=== PATIENT | female | born 1995 | race Caucasian/White ===

== ENCOUNTER 2018-11-28 19:45 | Emergency (ER) | payer BC, MEDICAID ==
[2018-11-28] MEDS ORDERED: PENICILLIN VK 250 MG TABLET PO STA (21:23)
[2018-11-28] MEDS ORDERED: DEXAMETHASONE 10 MG/ML VIAL PO STA (21:23)
[2018-11-28] MEDS ORDERED: CHERRY SYRUP 10 ML UDC PO ONE (21:23)
--- NOTE | 2018-11-28 21:25 | ED Physician Documentation ---
History of Present Illness - Stated complaint Stated Complaint: SORE THROAT - Chief complaint Chief Complaint: Heent - History obtained from History obtained from: Patient - History of Present Illness Timing: How many days ago (2) Pain level max: 5 Pain level now: 5 - Additonal information Additional information: 23-year-old female presents to the emergency department for sore throat for the past 2 to 3 days. Subjective fevers. No vomiting. No cough. Mild rhinorrhea. No congestion. Bilateral ear pain as well. Worse with swallowing. Nothing makes it better. Denies any possibility of . She is not breast- feeding. Review of Systems Throat: reports: Sore throat GI: denies: Vomiting, Diarrhea Skin: denies: Rash Musculoskeletal: denies: Neck pain, Back pain Neurologic: denies: Headache PD PAST MEDICAL HISTORY - Past Medical History Past Medical History: Yes HEENT: Other - Past Surgical History Past Surgical History: Yes HEENT: Myringotomy (tubes) - Present Medications Home Medications: Ambulatory Orders Medication Instructions Recorded Confirmed Penicillin V Potassium 500 mg PO Q6HR #40 tablet 11/28/18 - Allergies Allergies/Adverse Reactions: Allergies Allergy/AdvReac Type Severity Reaction Status Date / Time No Known Drug Allergies Allergy Verified 11/28/18 20:16 - Social History Does the pt smoke?: No Smoking Status: Never smoker Does the pt drink ETOH?: No Does the pt have substance abuse?: No - Immunizations Immunizations are current?: Yes - POLST Patient has POLST: No PD ED PE NORMAL - Vitals Vital signs reviewed: Yes - General General: Alert and oriented X 3, No acute distress, Well developed/nourished - HEENT HEENT: PERRL, Ears normal, Moist mucous membranes, Other (Posterior oropharyngeal erythema with tonsillar exudates. Uvula midline.) - Neck Neck: Supple, no meningeal sign, Other (Shotty anterior lymphadenopathy) - Cardiac Cardiac: RRR, Strong equal pulses - Respiratory Respiratory: No respiratory distress, Clear bilaterally - Abdomen Abdomen: Soft, Non tender, Non distended - Derm Derm: Warm and dry, No rash - Neuro Neuro: Alert and oriented X 3 - Psych Psych: Normal mood, Normal affect Results - Vitals Vitals: Oxygen O2 Source Room air - Labs Labs: Laboratory Tests 11/28/18 20:15 Group A Strep Rapid POSITIVE H PD MEDICAL DECISION MAKING - ED course Complexity details: reviewed results, considered differential, d/w patient ED course: Patient with strep pharyngitis. Will place on antibiotics. Normal phonation. No trismus. Patient counseled regarding signs and symptoms for which I believe and urgent re-evaluation would be necessary. Patient with good understanding of and agreement to plan and is comfortable going home at this time This document was made in part using voice recognition software. While efforts are made to proofread this document, sound alike and grammatical errors may occur. Departure - Departure Disposition: 01 Home, Self Care Clinical Impression: Strep pharyngitis Condition: Good Instructions: ED Strep Pharyngitis Conf Follow-Up: your,doctor in 1 week if not better [Other] Prescriptions: Penicillin V Potassium 500 mg PO Q6HR #40 tablet Comments: Take all antibiotics until gone. Return if you worsen. You can use Motrin or Tylenol as needed for pain. Drink plenty of fluids. Forms: Activity restrictions Discharge Date/Time: 11/28/18 21:37
[2018-11-28 21:39] VITALS: BP 136/74
== END 2018-11-28 21:37 | disposition home or self-care (01) ==
LOC: ED 19:45
DX: J02.0 Streptococcal pharyngitis (principal)
CPT/HCPCS: 87430; 99283; 99284; A9270

== ENCOUNTER 2019-12-15 01:44 | Emergency (ER) | payer SELFPAY ==
[2019-12-15] MEDS ORDERED: BACITRACIN ZINC OINT 1 PACKET TOP STA (02:04)
[2019-12-15 02:48] LABS: BILIRUBIN,URINE NEGATIVE (NEGATIVE); GLUCOSE, URINE (UA) NEGATIVE (NEGATIVE); KETONES,URINE (UA) TRACE mg/dL (NEGATIVE); LEUKOCYTE ESTERASE, URINE NEGATIVE (NEGATIVE); NITRITE,URINE NEGATIVE (NEGATIVE); OCCULT BLOOD,URINE MODERATE (NEGATIVE); PH,URINE 5.5 PH (5.0-7.5); PROTEIN,URINE NEGATIVE (NEGATIVE); UROBILINOGEN,URINE 1 (NORMAL) E.U./dL (NORMAL)
[2019-12-15 02:51] LABS: CLARITY,URINE CLEAR (CLEAR)
[2019-12-15 02:58] LABS: BACTERIA,URINE Rare /HPF (None Seen); RBC,URINE 0-5 /HPF (0-5); SQUAMOUS EPITHELIAL CELL,UR MOD Squamous (<= Few)
--- NOTE | 2019-12-15 03:33 | ED Physician Documentation ---
PD HPI FEMALE - Stated complaint Stated Complaint: F /8 WK PREG - Chief complaint Chief Complaint: Abd Pain - History obtained from History obtained from: Patient - Additional information Additional information: Patient comes emergency department complaining of vaginal bleeding. She states she is somewhere around 8 weeks and that about 5 nights ago, her she and her significant other had sexual intercourse. She noticed after that that she had some light vaginal bleeding, but did not have any other problems and the bleeding resolved quickly on its own. She states she has seen her OB and has an ultrasound scheduled for the . She denies nausea and states she has not had any other problems until this evening when she got in the shower, she noticed some dark red blood running down her legs. Patient states this was about an hour ago. She feels as though the bleeding may have slowed down a little bit, but she is concerned that she has had bleeding twice in the last week. Patient states this is her first . Patient denies abdominal pain, dysuria, vaginal discharge, back pain, or fevers. No other complaints at this time. Review of Systems Ten Systems: 10 systems reviewed and negative Constitutional: reports: Reviewed and negative Eyes: reports: Reviewed and negative Ears: reports: Reviewed and negative Nose: reports: Reviewed and negative Throat: reports: Reviewed and negative Cardiac: reports: Reviewed and negative Respiratory: reports: Reviewed and negative GI: reports: Reviewed and negative. denies: Abdominal Pain, Nausea : reports: LMP (October 19, 2019), Vaginal bleeding, Now EGA. denies: Dysuria Skin: reports: Reviewed and negative Musculoskeletal: reports: Reviewed and negative Neurologic: reports: Reviewed and negative Psychiatric: reports: Reviewed and negative Endocrine: reports: Reviewed and negative Immunocompromised: reports: Reviewed and negative PD PAST MEDICAL HISTORY - Past Medical History Past Medical History: Yes HEENT: Other - Past Surgical History Past Surgical History: Yes HEENT: Myringotomy (tubes) - Present Medications Home Medications: Ambulatory Orders Medication Instructions Recorded Confirmed No Known Home Medications 12/15/19 12/15/19 - Allergies Allergies/Adverse Reactions: Allergies Allergy/AdvReac Type Severity Reaction Status Date / Time No Known Drug Allergies Allergy Verified 12/15/19 01:56 - Social History Does the pt smoke?: No Smoking Status: Never smoker Does the pt drink ETOH?: No Does the pt have substance abuse?: No - Immunizations Immunizations are current?: Yes - POLST Patient has POLST: No PD ED PE NORMAL - Vitals Vital signs reviewed: Yes - General General: Alert and oriented X 3, No acute distress, Well developed/nourished - HEENT HEENT: Atraumatic, PERRL, EOMI, Moist mucous membranes - Neck Neck: Supple, no meningeal sign - Cardiac Cardiac: RRR, No murmur - Respiratory Respiratory: No respiratory distress, Clear bilaterally - Abdomen Abdomen: Soft, Non tender, Non distended - Female Female : Other (Normal female genitalia. Mild amount of dark red bloody residue, No clots. Unable to digitally palpate cervical os.) - Derm Derm: Warm and dry - Extremities Extremities: No deformity - Neuro Neuro: Alert and oriented X 3 - Psych Psych: Normal mood, Normal affect Results - Vitals Vitals: Vital Signs - 24 hr 12/15/19 12/15/19 12/15/19 01:45 02:07 03:41 Temperature 36.7 C 36.7 C 36.5 C Heart Rate 81 81 90 Respiratory 18 18 18 Rate Blood Pressure 135/82 H 135/82 H 126/65 O2 Saturation 100 100 100 Oxygen O2 Source Room air - Labs Labs: Laboratory Tests 12/15/19 12/15/19 02:38 02:40 HCG, Quant 66510.00 Urine Color YELLOW Urine Clarity CLEAR Urine pH 5.5 Ur Specific [place] >=1.030 H Urine Protein NEGATIVE Urine Glucose (UA) NEGATIVE Urine Ketones TRACE Urine Occult Blood MODERATE H Urine Nitrite NEGATIVE Urine Bilirubin NEGATIVE Urine Urobilinogen 1 (NORMAL) Ur Leukocyte Esterase NEGATIVE Urine RBC 0-5 Urine WBC 0-3 Ur Squamous Epith Cells MOD Squamous H Urine Bacteria Rare Ur Microscopic Review INDICATED Urine Culture Comments NOT INDICATED - Rads (name of study) ob US Radiology: Prelim report reviewed PD MEDICAL DECISION MAKING - ED course Complexity details: reviewed results, re-evaluated patient, considered differential, d/w patient ED course: I did order a serum quant and ultrasound, as I had been unable to palpate the cervical os, due to the high position of the cervix and the patient's nulliparous status. I was concerned because I also found a very small amount of what appeared to be tissue in the patient's vaginal canal. Ultrasound was done and showed a viable 7/2-week fetus with a normal heart rate. Possible small subchorionic hemorrhage per air quality technician. I discussed with the patient my findings on the vaginal exam, as well as the good appearance of the ultrasound. I discussed with her that I am not sure what the tissue like material was in her vaginal canal and that the patient may still be at risk for miscarriage. However, at this time, she should plan to keep her ultrasound appointment and try to follow-up with her OB next week for reevaluation because it is currently Wednesday morning. We have discussed the usual indications for return. Departure - Departure Disposition: Home, Self Care Clinical Impression: Threatened affecting intrauterine Condition: Stable Instructions: ED Miscarriage Poss Comments: At this point in time, despite the material that was found in your vaginal canal, the fetus actually looks quite good. It is measuring just over 7 weeks and has a normal heartbeat and is in the uterus. At this point in time, given that you are and bleeding, you are still considered at risk for miscarriage because of the bleeding. However, it may boot turner that this bleeding is benign and resolves on its own with a successful . Only time will tell. It is very important that you follow-up this next week with your [facility]. You should still plan to have your ultrasound the if no further complications arise in the meantime. Discharge Date/Time: 12/15/19 03:40
[2019-12-15 03:41] VITALS: BP 126/65
--- NOTE | 2019-12-15 09:41 | Ultrasound Report ---
PROCEDURE: OB Transvaginal INDICATIONS: vaginal bleeding, 8 weeks TECHNIQUE: Real-time grayscale scanning was performed with image documentation COMPARISON: None. FINDINGS: LMP 10/19/2019 JOSUE by LMP 07/25/2020 Exam date 12/15/2019 JOSUE 07/30/2020 Single living intrauterine fetus is present. [place]-rump length measuring 1.2 cm, 7 weeks 3 days. Feta l heart rate measures 152 bpm. Yolk sac is visualized. Questionable Perigestational hemorrhage measuring 2 x 2 by 3 mm. There is a presumed right corpus luteum measuring 1.3 x 1.2 x 1.0 cm, technically nonspecific. Small paraovarian cyst measuring 6 x 4 x 7 mm. IMPRESSION: Single living intrauterine fetus with a gestational age measuring 7 weeks and 3 days (JOSUE of 07/30/2020 , which is concordant with LMP) by today's ultrasound measurements Small perigestational hemorrhage. Findings are concordant with the preliminary study interpretation p rovided at the time of the study. Reviewed by: Chase Anderson MD on 12/15/2019 9:40 AM PDT Approved by: Chase Anderson MD on 12/15/2019 9:40 AM PDT Station ID: [id number]
== END 2019-12-15 03:40 | disposition home or self-care (01) ==
LOC: ED 01:44
DX: O20.0 Threatened abortion (principal); Z3A.01 Less than 8 weeks gestation of pregnancy
CPT/HCPCS: 36415; 76817; 81001; 81003; 84702; 87086; 99284

== ENCOUNTER 2020-01-08 14:53 | Outpatient (CLI) | payer OTHER | END 2020-01-08 14:54 | disposition home or self-care (01) | LOC: COV 14:53 | PROVIDERS: ATTEND Family Medicine | DX: U07.1 COVID-19 (principal) ==

== ENCOUNTER 2020-02-14 12:35 | Outpatient (CLI) | payer MEDICAID ==
[2020-02-14 13:13] LABS: BASOPHILS % (AUTO) 0.2 %; EOSINOPHILS % (AUTO) 0.2 %; HGB - HEMOGLOBIN 12.5 g/dL (12.0-16.0); LYMPHOCYTES # (AUTO) 2.1 10^3/uL (1.5-3.5); LYMPHOCYTES % (AUTO) 19.5 %; MEAN CORPUSCULAR HEMOGLOBIN 30.4 pg (27.0-31.0); MEAN CORPUSCULAR HGB CONC 33.4 g/dL (32.0-36.0); MEAN PLATELET VOLUME 10.7 fL (7.9-10.8); MONOCYTES # (AUTO) 0.5 10^3/uL (0.0-1.0); MONOCYTES % (AUTO) 5.1 %; MUDS CUTOFF CONCENTRATIONS CUTOFF CONC BELOW:; NEUTROPHILS # (AUTO) 7.9 10^3/uL (1.5-6.6); NEUTROPHILS % (AUTO) 74.5 %; PLT - PLATELET COUNT 268 10^3/uL (130-450); RED BLOOD COUNT 4.11 10^6/uL (4.20-5.40); RED CELL DISTRIBUTION WIDTH 13.3 % (12.0-15.0); WHITE BLOOD COUNT 10.6 x10^3/uL (4.8-10.8)
[2020-02-14 13:15] LABS: BILIRUBIN,URINE NEGATIVE (NEGATIVE); GLUCOSE, URINE (UA) NEGATIVE (NEGATIVE); KETONES,URINE (UA) NEGATIVE (NEGATIVE); LEUKOCYTE ESTERASE, URINE TRACE (NEGATIVE); NITRITE,URINE NEGATIVE (NEGATIVE); OCCULT BLOOD,URINE NEGATIVE (NEGATIVE); PH,URINE 6.5 PH (5.0-7.5); PROTEIN,URINE NEGATIVE (NEGATIVE); UROBILINOGEN,URINE 0.2 (NORMAL) E.U./dL (NORMAL)
[2020-02-14 13:25] LABS: CLARITY,URINE CLEAR (CLEAR)
[2020-02-14 13:26] LABS: AMPHETAMINE SCREEN,URINE NEGATIVE (NEGATIVE); BACTERIA,URINE Rare /HPF (None Seen); BENZODIAZEPINES SCREEN, URINE NEGATIVE (NEGATIVE); COCAINE SCREEN URINE NEGATIVE (NEGATIVE); METHADONE SCREEN, URINE NEGATIVE (NEGATIVE); METHAMPHETAMINES SCREEN, URINE NEGATIVE (NEGATIVE); OPIATE SCREEN, URINE NEGATIVE (NEGATIVE); OXYCODONE SCREEN, URINE NEGATIVE (NEGATIVE); PROPOXYPHENE SCREEN, URINE NEGATIVE (NEGATIVE); RBC,URINE None Seen /HPF (0-5); SQUAMOUS EPITHELIAL CELL,UR MANY Squamous (<= Few); TRICYCLIC ANTIDEPRESSANT,URINE NEGATIVE (NEGATIVE)
[2020-02-15 12:58] LABS: HEPATITIS C ANTIBODY NON-REACTIVE (NON-REACTIVE)
[2020-02-15 12:59] LABS: HEPATITIS B SURFACE ANTIGEN NON-REACTIVE (NON-REACTIVE)
[2020-02-15 13:57] LABS: HIV AG/AB 4TH GEN NON-REACTIVE (NON-REACTIVE)
== END 2020-02-14 12:36 | disposition home or self-care (01) ==
LOC: LAB 12:35
PROVIDERS: ATTEND Nurse Practitioner Obstetrics & Gynecology
DX: Z34.90 Encounter for supervision of normal pregnancy, unspecified, unspecified trimester (principal)
CPT/HCPCS: 36415; 80306; 81001; 81599; 85025; 86592; 86762; 86787; 86803; 86850; 86900; 86901; 87086; 87340; 87389

== ENCOUNTER 2020-03-11 11:41 | Outpatient (CLI) | payer MEDICAID ==
--- NOTE | 2020-03-11 16:02 | Ultrasound Report ---
PROCEDURE: OB Detailed Eval INDICATIONS: SUPERVISION OF NORMAL OUTSIDE/PRIOR DATING DATA: Last menstrual period (LMP): 10/19/2019. LMP-based estimated date of delivery (JOSUE): 07/25/2020. First dating scan (date and location): 12/15/2019. Estimated date of delivery (JOSUE) from first dating scan: 07/30/2020, +/- 5 days based on first OB ultra sound. TECHNIQUE: Real-time scanning was performed of the fetus, with image documentation and biometric measurements. Endovaginal scanning: Performed for accurate assessment of the cervical length. COMPARISON: 12/15/2019 OB ultrasound. FINDINGS: General: A single living intrauterine gestation is present. Presentation: Vertex Placenta: Placental position is posterior, without previa. Amniotic fluid index: 11.1 cm, normal for gestational age. heart rate: 157 beats per minute. Maternal cervical canal: Abnormally shortened at 1.3 cm long with relative funneling through the upp er half of the cervix; normal length is 2.5 cm or more. biometrics: Biparietal diameter: 4.9 cm, 20 weeks 5 days Head circumference: 17.8 cm, 20 weeks 2 days Abdominal circumference: 15.3 cm, 20 weeks 3 days Femur length: 3.3 cm, 20 weeks 1 day Estimated gestational age from initial scan: 20 weeks 4 days. Composite gestational age from present scan: 20 weeks 3 days Estimated weight and percentile: 347 g, 32nd percentile Measurement variability in biometric dating: +/- 10 days from 12-20 weeks gestation, +/- 2 weeks from 20-30 weeks gestation, +/- 3 weeks at 30 weeks gestation or later. Anatomic survey: Neuro: Ventricles are normal at less than 10 mm. Cisterna magna is normal at 3-11 mm. Cerebellum i s normal in size and morphology. Nuchal skin fold: Normal at less than 6 mm between 14 and 20 weeks gestational age. Face: Nose and lips, facial profile are normal. Spine: No evidence for spina bifida. Heart: 4-chambered heart is present, with normal ventricular outflow tracts. Diaphragm: Diaphragm is intact. Stomach: Left-sided stomach is present. Kidneys: No hydronephrosis. Normal is less than 5 mm in 2nd trimester, less than 7 mm in 3rd trimester. Cord: 3 vessel cord has orthotopic insertion. Bladder: Normal in size. Extremities: All 4 extremities are visualized. IMPRESSION: Appropriate interval growth, the delivery date is projected to be centered on 07/25/2020, +/- 5 days b ased on the first OB ultrasound. Note is made of foreshortening of the cervix measuring 1.3 cm closed length, and the upper half of the cervix appears funneled. Over a craniocaudad length of 2.2 cm. Thi s information was immediately called to the physician's nurse Phuong, to convey the information person ally to Dr. Jovel. Reviewed by: Wayne Silverio MD on 03/11/2020 4:01 PM PST Approved by: Wayne Silverio MD on 03/11/2020 4:01 PM PST Station ID: [id number]
== END 2020-03-11 11:42 | disposition home or self-care (01) ==
LOC: DI 11:41
PROVIDERS: ATTEND Obstetrics & Gynecology
DX: Z34.92 Encounter for supervision of normal pregnancy, unspecified, second trimester (principal)

== ENCOUNTER 2020-04-25 07:00 | Outpatient (CLI) | payer MEDICAID | END 2020-04-25 23:59 | disposition home or self-care (01) | LOC: LAB.R 07:00 | PROVIDERS: ATTEND Obstetrics & Gynecology | DX: O09.90 Supervision of high risk pregnancy, unspecified, unspecified trimester (principal) | CPT/HCPCS: 82731 ==

== ENCOUNTER 2020-05-04 16:23 | Outpatient (CLI) | payer MEDICAID ==
[2020-05-04 16:45] VITALS: BP 131/68
--- NOTE | 2020-05-04 17:46 | PROVIDER PROGRESS NOTE ---
- HPI Current : Current [facility] [place] 07/25/20 Gestation 28 Weeks and 2 Days 1 Para 0 Vital Signs Temperature 97.9 F 05/04/20 16:44 Heart Rate 98 05/04/20 16:44 Respiratory Rate 18 05/04/20 16:44 Blood Pressure 131/68 H 05/04/20 16:44 O2 Saturation 100 05/04/20 16:44 Temperature 97.9 F 05/04/20 16:55 Heart Rate 98 05/04/20 16:55 Respiratory Rate 18 05/04/20 16:55 Blood Pressure 131/68 H 05/04/20 16:55 O2 Saturation 100 05/04/20 16:55 - Procedures Procedure Details: S: here for vaginal bleeding. Had spotting this am, red, only seen when wiping. Then later on soaked the double-fabric crotch area of her underwear, wasn't wearing a pad, thinks it would have gone through to her underwear if she sat down. Since then no further bleeding. No LOF. No UC. Good FM. Feeling a change in vaginal odor. No itching. Had intercourse 2d ago. Has been working. O: AVSS Alert, resting comfortably, NAD Abd soft, nt/nd EFG normal Vagina without erythema or lesions. No blood in the vault. Fishy odor is present. Cervix appears closed, cerclage in place at 12:00. SVE closed and high NST--indication: vaginal bleeding in 3rd trimester Start time 16:44, stop time 17:26 Baseline: 150 BPM Variability: Moderate Accelerations: Present Decelerations: Absent Trends in FHR over time: no changes [place] contractions in 10 minutes: 0 Impression: reactive Category 1 NST A/P: 25yo g1 at 28w2d by LMP c/w 7w US with vaginal bleeding in 3rd TM of -- complicated by exam-indicated cerclage at 21w--following incidental finding of short cervix with funneling seen on routine anatomy scan. Has done well since that time. No previa on prior ultrasounds. No evidence of labor. No pain or changes in tracing to suggest abruption. On exam there is no active bleeding, source of bleeding could not be identified, and there was no blood in the vault. She does have odor c/w bacterial vaginosis and clue cells on wet mount. Will treat with po flagyl. d/w Setswana MFM who recommends no intercourse--discussed with Clotilde today. OK to work. MFM without further recommendations. 28min visit including consultation with MFM. Seen and examined by
[2020-05-04 22:16] LABS: CHLAMYDIA TRACHOMATIS DNA NEGATIVE (NEGATIVE); NEISSERIA GONORRHOEAE DNA NEGATIVE (NEGATIVE); TRICHOMONAS VAGINALIS DNA NEGATIVE (NEGATIVE)
== END 2020-05-04 18:15 | disposition home or self-care (01) ==
LOC: WFO 16:23 → FBP 16:30 → WFO 18:15
PROVIDERS: ATTEND Obstetrics & Gynecology
DX: O46.93 Antepartum hemorrhage, unspecified, third trimester (principal); Z3A.28 28 weeks gestation of pregnancy
CPT/HCPCS: 87210; 87491; 87591; 87661; 99213

== ENCOUNTER 2020-05-06 15:43 | Outpatient (CLI) | payer MEDICAID ==
[2020-05-06 17:14] LABS: HCT - HEMATOCRIT 34.7 % (37.0-47.0); HGB - HEMOGLOBIN 11.4 g/dL (12.0-16.0); MEAN CORPUSCULAR HEMOGLOBIN 30.8 pg (27.0-31.0); MEAN CORPUSCULAR HGB CONC 32.9 g/dL (32.0-36.0); MEAN CORPUSCULAR VOLUME 93.8 fL (81.0-99.0); MEAN PLATELET VOLUME 10.8 fL (7.9-10.8); RED BLOOD COUNT 3.7 10^6/uL (4.20-5.40); RED CELL DISTRIBUTION WIDTH 12.4 % (12.0-15.0)
== END 2020-05-06 15:44 | disposition home or self-care (01) ==
LOC: LAB 15:43
PROVIDERS: ATTEND Obstetrics & Gynecology
DX: O09.90 Supervision of high risk pregnancy, unspecified, unspecified trimester (principal)
CPT/HCPCS: 36415; 82950; 85027

== ENCOUNTER 2020-05-15 07:59 | Outpatient (CLI) | payer MEDICAID ==
[2020-05-15 08:28] LABS: GTT GLUCOSE,FASTING 94 mg/dL (70-100)
== END 2020-05-15 08:00 | disposition home or self-care (01) ==
LOC: LAB 07:59
PROVIDERS: ATTEND Obstetrics & Gynecology
DX: O99.810 Abnormal glucose complicating pregnancy (principal)
CPT/HCPCS: 36415; 82951; 82952

== ENCOUNTER 2020-05-30 09:06 | Outpatient (CLI) | payer MEDICAID ==
[2020-05-30 09:57] LABS: BILIRUBIN,URINE NEGATIVE (NEGATIVE); GLUCOSE, URINE (UA) NEGATIVE (NEGATIVE); KETONES,URINE (UA) NEGATIVE (NEGATIVE); LEUKOCYTE ESTERASE, URINE TRACE (NEGATIVE); NITRITE,URINE NEGATIVE (NEGATIVE); OCCULT BLOOD,URINE NEGATIVE (NEGATIVE); PH,URINE 5.5 PH (5.0-7.5); PROTEIN,URINE NEGATIVE (NEGATIVE); UROBILINOGEN,URINE 0.2 (NORMAL) E.U./dL (NORMAL)
[2020-05-30 10:00] LABS: CLARITY,URINE HAZY (CLEAR)
[2020-05-30 10:05] LABS: BACTERIA,URINE Rare /HPF (None Seen); MUCUS,URINE Moderate Strands; RBC,URINE 0-5 /HPF (0-5); SQUAMOUS EPITHELIAL CELL,UR MANY Squamous (<= Few); WBC,URINE >25 /HPF (0-5)
[2020-05-30 10:11] LABS: RUPTURE OF MEMBRANES PLUS POSITIVE (NEGATIVE)
[2020-05-30] MEDS ORDERED: MAGNESIUM SULFATE 4 GRAM 4 GM/50 ML BAG IV ONE (10:40)
[2020-05-30] MEDS ORDERED: BETAMETHASONE 30 MG/5 ML VIAL IM ONE (10:41)
[2020-05-30] MEDS ORDERED: LACTATED RINGERS 1,000 ML IV SCH (11:00)
[2020-05-30] MEDS ORDERED: MAGNESIUM SULFATE IN WATER 20 GM/500 ML IV.SOLN IV SCH (11:00)
--- NOTE | 2020-05-30 11:00 | PREOP HISTORY & PHYSICAL ---
DATE OF SERVICE: 05/30/2020 Physician: Navid Banks MD IDENTIFICATION: A 25-year-old G1, P0, whose EDC is 32 weeks. This is determined by an 18-week ultrasound and last menstrual period. She has a due date of 07/25/20. CHIEF COMPLAINT: Leaking fluid. HISTORY OF PRESENT ILLNESS: The patient at 0615 this morning felt a gush of fluid from the vagina. She had a second episode while at work at roughly 8:00. She had what felt like sort of a contraction, but this has resolved. She has a history of having a cerclage placed at roughly 22 weeks for a cervix which was 1.5 cm in length. She was put at pelvic rest. Her 50 gram Glucola showed it to be 147. Three-hour GTT was normal. She was placed at pelvic rest. She was initially started on progesterone, which has been stopped. Pt had Covid 17 Jan 2021 Blood type: O+ Rubella: immune Hep B,C negative VZV: 371 pos HIV nonreactive PAST MEDICAL HISTORY: Denies any diabetic, cardiac or pulmonary disease. SURGICAL HISTORY: Positive for nasal surgery. ALLERGIES: NONE KNOWN. CURRENT MEDICATIONS: vitamins. HABITS: The patient denies use of alcohol, tobacco or street or addictive drugs. SOCIAL HISTORY: The patient is and works outside the home at this time. PHYSICAL EXAM: GENERAL: A well-developed, well-nourished female who is in no acute distress at this time. VITAL SIGNS: Blood pressure 125/78, heart rate is 104, temperature is 36.5. HEENT: Pupils equal, round. Extraocular muscles intact. NECK: Thyroid is not palpably enlarged. HEART: Regular rate and rhythm without murmurs. LUNGS: Lung padilla are clear without rales or wheezes. BACK: No spinal or CVA tenderness noted. ABDOMEN: Soft, nontender. Her last exam in the clinic showed her fundal height to be 31 cm at 31 weeks. PELVIC: Speculum was placed, cervix visualized, appeared to be moist in nature and glistening. There was no pooling. It was Nitrazine positive. The fern was negative, and her ROM plus is positive. Cervix was not checked for dilatation. The patient is vertex in presentation. ULTRASOUND: Vertex, KM 14cm, 8/8 BPP IMPRESSION: 1. A 25-year-old at 32 weeks estimated gestational age. 2. Spontaneous rupture of membranes. 3. Cerclage in place without signs of labor. PLAN: I have discussed with maternal- medicine, and we will give her betamethasone 12mg IM , put her on magnesium sulfate 4/2 gm, and give her ampicillin 2 gms. Cultures for group B strep have been taken. The accepting physician is Yue Holley MD at [facility]. TD: 05/30/2020 10:58 MTDD
--- NOTE | 2020-05-30 11:41 | Ultrasound Report ---
PROCEDURE: OB Limited INDICATIONS: Possible rupture of membranes OUTSIDE/PRIOR DATING DATA: Last menstrual period (LMP): 10/19/2019. LMP-based estimated date of delivery (JOSUE): 07/25/2020 as per provider. First dating scan (date and location): 12/15/2019. Estimated date of delivery (JOSUE) from first dating scan: 07/30/2020. TECHNIQUE: Real-time scanning was performed of the fetus, with image documentation. COMPARISON: 03/11/2020, 12/15/2019. FINDINGS: A single living intrauterine gestation is present. Presentation: Vertex Placenta: Placental position is posterior fundal, without previa. Amniotic fluid index: 14 cm, corresponding to the 46th percentile for gestational age. Largest pocket measures 5.9 cm. heart rate: 157 beats per minutes. Maternal cervical canal: Not visualized. Estimated gestational age from initial scan: 32 weeks 0 days. IMPRESSION: 1. Single living intrauterine demonstrated in vertex position. 2. Amniotic fluid index within normal limits at the 46th percentile. Reviewed by: Luis Angel Jefferson MD on 05/30/2020 11:39 AM PDT Approved by: Luis Angel Jefferson MD on 05/30/2020 11:39 AM PDT Station ID: [id number]
[2020-05-30 11:49] VITALS: BP 101/45
[2020-05-30] MEDS ORDERED: ONDANSETRON 4 MG/2 ML VIAL IVP PRN (11:52)
[2020-05-30] MEDS ORDERED: AMPICILLIN 2 GM in SODIUM CHLORIDE 0.9% MINIBAG 100 ML IV SCH (12:00)
[2020-05-30 21:21] LABS: BACTERIAL VAGINOSIS DNA NEGATIVE (NEGATIVE); CANDIDA GLABRATA DNA NEGATIVE (NEGATIVE); CANDIDA GROUP DNA NEGATIVE (NEGATIVE); CANDIDA KRUSEI DNA NEGATIVE (NEGATIVE); TRICHOMONAS VAGINALIS DNA NEGATIVE (NEGATIVE)
--- OUTSIDE RECORDS SUMMARY | 2020-06-05 00:35 | EXTERNAL MEDICAL SUMMARY RPT | Continuity of Care Document ---
:1995 Demographics Phone Unavailable Preferred Language Unknown Marital Status Unknown Latter Day Affiliation Unknown Race Unknown Ethnic Group Unknown Author Organization [place] Address [address] [phone] Phone Problems date description facility [id number] shortened cervix edc 07/25/20 [facility] [employer] [id number] pprom [facility] Social History date description facility [id number]
== END 2020-05-30 12:30 | disposition short-term general hospital (02) ==
LOC: WFO 09:06 → FBP 09:12 → WFO 12:30
PROVIDERS: ATTEND Obstetrics & Gynecology
DX: O42.913 Preterm premature rupture of membranes, unspecified as to length of time between rupture and onset of labor, third trimester (principal); O34.33 Maternal care for cervical incompetence, third trimester; Z3A.32 32 weeks gestation of pregnancy
CPT/HCPCS: 36415; 76815; 81001; 84112; 87077; 87081; 87181; 87481; 87661; 87801; 96372; 96374; 96375; 96376; 99215; J7120; 81003; 87086; 87797; J3475

== ENCOUNTER 2020-06-05 13:51 | Observation (INO) | payer MEDICAID ==
[2020-06-05] MEDS ORDERED: ACETAMINOPHEN 325 MG TABLET PO PRN (14:25)
[2020-06-05 14:46] VITALS: BP 135/88
--- OUTSIDE RECORDS SUMMARY | 2020-06-05 15:10 | EXTERNAL MEDICAL SUMMARY RPT | Continuity of Care Document ---
:1995 Demographics Phone Unavailable Preferred Language Unknown Marital Status Unknown Gnosticist Affiliation Unknown Race Unknown Ethnic Group Unknown Author Organization [place] Address [address] [place] [address] Phone Problems date description facility [id number] shortened cervix edc 07/25/20 [facility] [employer] [facility] [id number] pprom [facility] Social History date description facility [id number]
[2020-06-05 15:18] LABS: BASOPHILS % (AUTO) 0.2 %; EOSINOPHILS % (AUTO) 0.2 %
[2020-06-05 15:23] LABS: HCT - HEMATOCRIT 35.5 % (37.0-47.0); HGB - HEMOGLOBIN 11.8 g/dL (12.0-16.0); LYMPHOCYTES # (AUTO) 2.2 10^3/uL (1.5-3.5); LYMPHOCYTES % (AUTO) 8.9 %; MEAN CORPUSCULAR HEMOGLOBIN 30.3 pg (27.0-31.0); MEAN CORPUSCULAR HGB CONC 33.2 g/dL (32.0-36.0); MEAN PLATELET VOLUME 11.3 fL (7.9-10.8); MONOCYTES # (AUTO) 1.3 10^3/uL (0.0-1.0); MONOCYTES % (AUTO) 5.3 %; NEUTROPHILS # (AUTO) 20.3 10^3/uL (1.5-6.6); NEUTROPHILS % (AUTO) 84.3 %; PLT - PLATELET COUNT 352 10^3/uL (130-450); WHITE BLOOD COUNT 24.1 x10^3/uL (4.8-10.8)
[2020-06-05 15:28] LABS: ALBUMIN 3.5 g/dL (3.2-5.5); ALBUMIN/GLOBULIN RATIO 0.9 (1.0-2.2); BILIRUBIN,TOTAL 0.3 mg/dL (0.2-1.0); CREATININE 0.4 mg/dL (0.4-1.0); POTASSIUM 3.7 mmol/L (3.5-5.0); TOTAL PROTEIN 7.3 g/dL (6.7-8.2)
[2020-06-05 15:55] LABS: DIFFERENTIAL COMMENT MANUAL=AUTO DIFF; PLATELET ESTIMATE, MANUAL NORMAL (130-450,000) (NORMAL); PLATELET MORPHOLOGY 1+ GIANT PLATELETS (NORMAL); RBC MORPHOLOGY (MULTIPLE) NORMAL APPEARANCE (NORMAL)
[2020-06-05] MEDS ORDERED: NIFEdipine 10 MG CAPSULE PO ONE ×2 (16:00→17:17)
[2020-06-05 16:19] LABS: BILIRUBIN,URINE NEGATIVE (NEGATIVE); GLUCOSE, URINE (UA) NEGATIVE (NEGATIVE); KETONES,URINE (UA) 15 mg/dL (NEGATIVE); LEUKOCYTE ESTERASE, URINE NEGATIVE (NEGATIVE); NITRITE,URINE NEGATIVE (NEGATIVE); OCCULT BLOOD,URINE NEGATIVE (NEGATIVE); PROTEIN,URINE NEGATIVE (NEGATIVE); UROBILINOGEN,URINE 0.2 (NORMAL) E.U./dL (NORMAL)
[2020-06-05 16:22] LABS: CLARITY,URINE CLEAR (CLEAR)
--- NOTE | 2020-06-05 17:40 | PROVIDER PROGRESS NOTE ---
- HPI Current : Vital Signs Temperature 97.7 F 06/05/20 13:59 Heart Rate 115 H 06/05/20 13:59 Respiratory Rate 20 06/05/20 13:59 Blood Pressure 135/88 H 06/05/20 13:59 O2 Saturation 100 06/05/20 13:59 Temperature 97.7 F 06/05/20 13:59 Heart Rate 115 H 06/05/20 13:59 Respiratory Rate 20 06/05/20 13:59 Blood Pressure 135/88 H 06/05/20 13:59 O2 Saturation 100 06/05/20 13:59 - Procedures Findings: CC: abdominal pain HPI: has had increasing abd pain since yesterday, hard to describe, comes and goes, when it is there it can last for minutes, it improves but never really goes away. Got to 10/10 last hs but didn't come in as recommended. 9/10 intensity now in the LLQ especially and the low back. Pain goes down the legs a bit. No trauma. Nothing makes it worse or better. Quality is crampy. ROS: no fevers, cough, vaginal bleeding, or leaking of fluid. Good FM. No diarrhea, constipation, hematuria, or dysuria. OB hx: cerclage in situ placed for incidental short cervix at anatomy US. Transported to [facility] on 05/30 for SROM with a gush of fluid and a ROM plus test taht was positive. At [facility] she was observed, did not appear to be ruptured, and was sent home. Got BMZ X1 on 05/30 O: AVSS Abd soft, mild tenderness in LLQ, no guarding, no rebound EFG normal Vagina pink, physiologic discharge present, cervix visualized, cerclage suture insitu without abnormality. SVE fingertip with a tight cerclage. NST Baseline: BPM 150 Variability: Moderate Accelerations: Present Decelerations: spontaneous variable decel with isreal 90 lasting for 50sec. Monitoring for 2h afterward without decelerations. Trends in FHR over time: no changes [place] contractions in 10 minutes: Impression: reactive Category 1 NST Studies: UA neg. WBC 24. CMP normal. Triage course: toco not picking up well so pt given an event monitor for when her pain flares. her baird corresponded with likely UC on toco. Initial UCs q2-5min. Given nifedipine 20mg sublingual once at 15:54. Pain improved to 6/10, has gone away completely for a few minutes but otherwise has felt some degree of background pain the whole time she's been in triage. Contraction frequency decreased. Then pain worsened again and another 20mg of nifedipine given at 17:28. Pain returned to 10/10 though she is resting comfortably in bed. A/P: 25yo G1 at 32w6d with abdominal pain likely related to contractions with a tight cerclage in situ. She has a WBC of 24 and had a + ROM plus test last week so there is the possiblity of occult ROM. No other etiology of pain found--ROS neg, normal UA, normal CMP. Last week and normal vaginitis and gc/ct screening. Got her 1st dose of BMZ on 05/30 and pt reports getting the 2nd dose at [facility] though I don't have the records to confirm this. D/w Dr. Kelle Diaz MFM at [address] who recommends transport for possible cerclage removal. Pt's pain has been constant over the past 30+ hours and I feel that it is appropriate for pt to go immediately to [place] with her family member driving. IV left in place. Pt promises not to go to her house on the way to [place]. 73 minutes of MD time.
== END 2020-06-05 18:30 | disposition home or self-care (01) ==
LOC: WFO 13:51 → FBP 13:53 → WFO 14:23 → FBP 14:24
PROVIDERS: ADMIT Obstetrics & Gynecology; ATTEND Obstetrics & Gynecology
DX: O99.891 Other specified diseases and conditions complicating pregnancy (principal); R10.32 Left lower quadrant pain; M54.5 Low back pain; O26.873 Cervical shortening, third trimester; Z3A.32 32 weeks gestation of pregnancy
CPT/HCPCS: 80053; 81003; 85025; 99215; A9270; G0378; 81001; 87086

== ENCOUNTER 2021-01-05 10:41 | Emergency (ER) | payer MEDICAID ==
[2021-01-05 10:59] VITALS: BP 144/85
[2021-01-05] MEDS ORDERED: DEXAMETHASONE 10 MG/ML VIAL PO STA (11:19)
[2021-01-05] MEDS ORDERED: CHERRY SYRUP 10 ML UDC PO ONE (11:19)
--- NOTE | 2021-01-05 11:22 | ED Physician Documentation ---
PD HPI HEENT - Stated complaint Stated Complaint: R EAR PX - Chief complaint Chief Complaint: Heent - History obtained from History obtained from: Patient - History of Present Illness Timing - onset: Last night Timing - duration: Hours Timing - details: Abrupt onset, Still present Location: Right ear Improves: Medication Associated symptoms: Congestion, Headache. No: Fever, Cough Similar symptoms before: No diagnosis Recently seen: Not recently seen - Additional information Additional information: 25-year-old female reports that beginning last night she developed a pain in her right ear that was stabbing in nature and kept her awake all night. She denies any cough she denies any fever she has had something similar to this 2 months ago she used some drops in her ear eventually she got a bit of a sore throat and this went away. She states that it does not hurt to push on the ear or touch it and the pain seems to be going from the angle of the jaw into her throat. Review of Systems Constitutional: denies: Fever, Chills, Myalgias Eyes: denies: Decreased vision Ears: reports: Ear pain Nose: reports: Congestion. denies: Rhinorrhea / runny nose Throat: denies: Sore throat Cardiac: denies: Chest pain / pressure, Palpitations Respiratory: denies: Dyspnea, Cough PD PAST MEDICAL HISTORY - Past Medical History Past Medical History: Yes HEENT: Other - Past Surgical History Past Surgical History: Yes HEENT: Myringotomy (tubes) - Present Medications Home Medications: Ambulatory Orders Medication Instructions Recorded Confirmed Amox/Clav 875/125 [Augmentin] 1 each PO Q12H #20 tablet 01/05/21 - Allergies Allergies/Adverse Reactions: Allergies Allergy/AdvReac Type Severity Reaction Status Date / Time No Known Drug Allergies Allergy Verified 01/05/21 10:59 - Social History Does the pt smoke?: No Smoking Status: Never smoker Does the pt drink ETOH?: No Does the pt have substance abuse?: No - Immunizations Immunizations are current?: Yes - POLST Patient has POLST: No PD ED PE NORMAL - Vitals Vital signs reviewed: Yes (Hypertensive) - General General: Alert and oriented X 3, No acute distress, Well developed/nourished - HEENT HEENT: Atraumatic, PERRL, EOMI, Other (Right TM is with marked erythema in the attic and distortion of the landmarks with bulging of the TM. Left TM is clear minimal erythema to the right tonsillar pillar.) - Neck Neck: Supple, no meningeal sign, No bony TTP - Cardiac Cardiac: RRR, No murmur - Respiratory Respiratory: No respiratory distress, Clear bilaterally - Abdomen Abdomen: Soft, Non tender - Back Back: No CVA TTP, No spinal TTP - Derm Derm: Normal color, Warm and dry, No rash - Extremities Extremities: No deformity, No edema - Psych Psych: Normal mood, Normal affect Results - Vitals Vitals: Vital Signs - 24 hr 01/05/21 10:58 Temperature 35.9 C L Heart Rate 83 Respiratory 14 Rate Blood Pressure 144/85 H O2 Saturation 96 Oxygen O2 Source Room air PD MEDICAL DECISION MAKING - ED course Complexity details: reviewed old records, considered differential, d/w patient ED course: 25-year-old female with acute right otitis media has had symptoms previously and cleared these on her own after more than a week of time. Today she is here for treatment we will provide this with dexamethasone and plan we will place her on Augmentin. I discussed with the patient the natural history of otitis media and its treatment. Departure - Departure Disposition: 01 Home, Self Care Clinical Impression: Otitis media Qualifiers: Otitis media type: suppurative Chronicity: acute Laterality: right Recurrence: recurrent Spontaneous tympanic membrane rupture: without spontaneous rupture Qualified Code(s): H66.004 - Acute suppurative otitis media without spontaneous rupture of ear drum, recurrent, right ear Condition: Stable Instructions: ED Otitis Media Acute Adult Follow-Up: [facility] [Provider Group] Prescriptions: Amox/Clav 875/125 [Augmentin] 1 each PO Q12H #20 tablet
== END 2021-01-05 11:37 | disposition home or self-care (01) ==
LOC: ED 10:41
DX: H66.004 Acute suppurative otitis media without spontaneous rupture of ear drum, recurrent, right ear (principal)
CPT/HCPCS: 99282; 99284; A9270

== ENCOUNTER 2021-03-06 08:00 | Outpatient (CLI) | payer MEDICAID | END 2021-03-06 23:59 | LOC: LAB.N 08:00 | PROVIDERS: ATTEND Family Medicine | DX: U07.1 COVID-19 (principal) ==

== ENCOUNTER 2021-03-28 12:55 | Outpatient (CLI) | payer MEDICAID ==
[2021-03-28 15:16] LABS: ESTIMATED AVERAGE GLUCOSE 105 mg/dL (70-100); HEMOGLOBIN A1c% 5.3 % (4.27-6.07)
== END 2021-03-28 12:56 | disposition home or self-care (01) ==
LOC: LAB 12:55
PROVIDERS: ATTEND Obstetrics & Gynecology
DX: E28.2 Polycystic ovarian syndrome (principal)
CPT/HCPCS: 36415; 83036; 84403; 84443; 84702

== ENCOUNTER 2021-07-02 20:14 | Outpatient (CLI) | payer MEDICAID ==
--- NOTE | 2021-07-03 11:36 | Ultrasound Report ---
PROCEDURE: Pelvic w/Transvaginal INDICATIONS: PELVIC PAIN TECHNIQUE: Real-time scanning was performed of the pelvic organs, with image documentation. Additional endovagi nal scanning was necessary due to incomplete visualization of the adnexal and endometrial structures by transabdominal scanning. COMPARISON: None. FINDINGS: Limited scanning through the kidneys shows no hydronephrosis. No pathologic free abdominal or pelvic fluid. Uterus: Uterus is normal in size at 8.7 x 4.4 x 4.8 cm. The endometrium measures 9 mm in combined t hickness. Heterogeneous appearance of uterine echotexture without focal mass lesion. Ovaries: Right ovary measures 2.4 x 2.7 x 2.5 cm with volume of 8.6 mL. Incidental note of a dominan t follicle versus resolving cyst. Left ovary measures 3.2 x 1.5 x 3.1 cm with volume of 7 mL. No susp icious ovarian or adnexal mass lesions. Cervix: Nabothian cysts are present. Other: No free pelvic fluid. IMPRESSION: Unremarkable pelvic ultrasound without acute sonographic abnormalities. Reviewed by: Will Tapia MD on 07/03/2021 11:34 AM PDT Approved by: Will Tapia MD on 07/03/2021 11:34 AM PDT Station ID: [id number]
== END 2021-07-02 20:15 | disposition home or self-care (01) ==
LOC: DI 20:14
PROVIDERS: ATTEND Obstetrics & Gynecology
DX: R10.2 Pelvic and perineal pain (principal)

== ENCOUNTER 2021-09-18 08:00 | Outpatient (CLI) | payer MEDICAID | END 2021-09-18 23:59 | disposition home or self-care (01) | LOC: LAB.WC 08:00 | PROVIDERS: ATTEND Obstetrics & Gynecology | DX: R32 Unspecified urinary incontinence (principal) | CPT/HCPCS: 87086 ==

== ENCOUNTER 2021-09-23 08:00 | Outpatient (CLI) | payer MEDICAID ==
[2021-09-23 16:02] LABS: BILIRUBIN,URINE NEGATIVE (NEGATIVE); GLUCOSE, URINE (UA) NEGATIVE (NEGATIVE); KETONES,URINE (UA) NEGATIVE (NEGATIVE); LEUKOCYTE ESTERASE, URINE NEGATIVE (NEGATIVE); NITRITE,URINE NEGATIVE (NEGATIVE); OCCULT BLOOD,URINE NEGATIVE (NEGATIVE); PROTEIN,URINE NEGATIVE (NEGATIVE); UROBILINOGEN,URINE 0.2 (NORMAL) E.U./dL (NORMAL)
[2021-09-23 16:06] LABS: CLARITY,URINE HAZY (CLEAR)
[2021-09-23 16:21] LABS: AMORPHOUS SEDIMENT,UR Few /LPF; BACTERIA,URINE Moderate /HPF (None Seen); MUCUS,URINE Few Strands; RBC,URINE 0-5 /HPF (0-5); SQUAMOUS EPITHELIAL CELL,UR MOD Squamous (<= Few); WBC,URINE 0-3 /HPF (0-5)
== END 2021-09-23 23:59 | disposition home or self-care (01) ==
LOC: LAB.WCP 08:00
PROVIDERS: ATTEND Nurse Practitioner
DX: R30.0 Dysuria (principal)
CPT/HCPCS: 81001; 87086

== ENCOUNTER 2022-05-14 10:14 | Outpatient (CLI) | payer MEDICAID | END 2022-05-14 10:15 | disposition home or self-care (01) | LOC: LAB 10:14 | PROVIDERS: ATTEND Obstetrics & Gynecology | DX: E28.2 Polycystic ovarian syndrome (principal) | CPT/HCPCS: 36415; 84144 ==

== ENCOUNTER 2022-05-28 10:57 | Emergency (ER) | payer MEDICAID ==
[2022-05-28 11:04] VITALS: BP 144/90
--- NOTE | 2022-05-28 11:26 | ED Physician Documentation ---
PD HPI URI - Stated complaint Stated Complaint: SORE THRT/HEADACHE - Chief complaint Chief Complaint: Heent - History obtained from History obtained from: Patient - History of Present Illness Timing - onset: Today, Last night Timing duration: Days (1/2) Timing details: Abrupt onset, Still present Associated symptoms: No: Fever, Chills Contributing factors: Sick contact (her sister wtih strep throat last week and was exposed to her. She is improving on antibiotics.) Similar symptoms before: Has not had sx before Review of Systems Constitutional: reports: Fever (subjective sweats and chills last night. Did not take temp per se.), Chills Nose: denies: Rhinorrhea / runny nose, Congestion Throat: reports: Sore throat, Swollen tonsils Respiratory: denies: Cough GI: reports: Nausea. 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, Other HEENT: Other Psych: None Musculoskeletal: None - Past Surgical History Past Surgical History: Yes HEENT: Myringotomy (tubes) - Present Medications Home Medications: Ambulatory Orders Medication Instructions Recorded Confirmed Amox/Clav 875/125 [Augmentin] 1 each PO Q12H #20 tablet 01/05/21 HYDROcod/ACETAM 5/325 [Omega 5/325] 1 tab PO Q4H PRN #15 tablet 10/14/21 HYDROcod/ACETAM 5/325 [Omega 5/325] 1 ea PO Q6H PRN #10 tablet 05/28/22 Penicillin V Potassium 500 mg PO QID #28 tablet 05/28/22 dexAMETHasone [Decadron] 4 mg PO DAILY #5 tablet 05/28/22 - Allergies Allergies/Adverse Reactions: Allergies Allergy/AdvReac Type Severity Reaction Status Date / Time No Known Drug Allergies Allergy Verified 05/28/22 11:04 - Social History Does the pt smoke?: No Smoking Status: Never smoker Does the pt drink ETOH?: No Does the pt have substance abuse?: No - Immunizations Immunizations are current?: Yes - POLST Patient has POLST: No PD ED PE NORMAL - Vitals Vital signs reviewed: Yes - General General: Alert and oriented X 3, No acute distress (appearss pain with swallowing. Normal voice. ), Well developed/nourished - HEENT HEENT: Ears normal. No: Pharynx benign (tonsils swollen bilaterally with redness and mild spotty exudate. No peritonsillar edema, but the uvula has mild swelling. ) - Neck Neck: Supple, no meningeal sign, Other (some anterior adenopathy more to the left. ) - Cardiac Cardiac: RRR, No murmur - Respiratory Respiratory: Clear bilaterally - Derm Derm: Normal color, Warm and dry, No rash - Neuro Neuro: Alert and oriented X 3, Normal speech Results - Vitals Vitals: Vital Signs - 24 hr 05/28/22 11:03 Temperature 36.4 C L Heart Rate 72 Respiratory 16 Rate Blood Pressure 144/90 H O2 Saturation 100 Oxygen O2 Source Room air - Labs Labs: Laboratory Tests 05/28/22 11:05 Group A Strep Rapid Negative PD Medical Decision Making - ED course Complexity details: considered differential (has 4/4 Centor criteria and was exposed to strep, so will empirically treat, pending culture. ), d/w patient Departure - Departure Disposition: 01 Home, Self Care Clinical Impression: Acute pharyngitis Condition: Stable Record reviewed to determine appropriate education?: Yes Instructions: ED Strep Pharyngitis Poss Prescriptions: dexAMETHasone [Decadron] 4 mg PO DAILY #5 tablet HYDROcod/ACETAM 5/325 [Omega 5/325] 1 ea PO Q6H PRN #10 tablet PRN Reason: Pain Penicillin V Potassium 500 mg PO QID #28 tablet Comments: Your rapid strep test is negative. The culture is pending and will result in a couple of days. Your symptoms and exam are suspicious for strep with the tonsillar swelling, swollen glands, chills and not having general cold symptoms. This is reinforced with your exposure to someone with strep. Therefore I would start treating you with strep throat pending the culture result as it does sound likely that you have it. Penicillin 4 times a day as directed for a week. Decadron anti-inflammatory daily for few more days. Add Tylenol every 4-6 hours if needed for pain or hydrocodone if needed for worse pain. I would anticipate improvement in your pain level over 1 or 2 days but may take 3 to 5 days to resolve. He would be considered noninfectious after 24 hours on the antibiotics so off work today and into tomorrow. I sent your prescriptions to [facility] pharmacy in [place]. Recheck if not improving well over the next several days and return sooner if worse. I am prescribing a short course of narcotic pain medication for you. These are potentially dangerous and addictive medications that should be used carefully. These medications may constipate you. Take an [id number]-[id number] stool softener such as docusate twice daily with plenty of water while taking these medications. If you go 24 hours without a bowel movement, take [id number]-[id number] MiraLAX, per package instructions. Do not drink or drive while taking these medications. If you received narcotic or sedating medications while in the emergency department do not drive for 24 hours. Store this medication in a safe, secure place and out of reach of children. It is a violation of federal law to give or sell this medication to another person or to use in a manner other than prescribed. The ED will not refill narcotic prescriptions, including prescriptions lost or stolen. You can dispose of unwanted medications at the [facility]'s office or at several pharmacies such as [facility]. Forms: Activity restrictions Discharge Date/Time: 05/28/22 12:05
[2022-05-28 11:31] LABS: RAPID STREP SCREEN Negative (Negative)
[2022-05-28] MEDS ORDERED: PENICILLIN VK 250 MG TABLET PO STA (11:50)
[2022-05-28] MEDS ORDERED: DEXAMETHASONE 10 MG/ML VIAL PO STA (11:50)
[2022-05-28] MEDS ORDERED: ACETAMINOPHEN 325 MG TABLET PO STA (11:50)
[2022-05-28] MEDS ORDERED: CHERRY SYRUP 10 ML UDC PO ONE (11:50)
== END 2022-05-28 12:05 | disposition home or self-care (01) ==
LOC: ED 10:57
DX: J02.9 Acute pharyngitis, unspecified (principal)
CPT/HCPCS: 87070; 87077; 87430; 99283; A9270

== ENCOUNTER 2022-06-04 09:15 | Outpatient (CLI) | payer MEDICAID ==
[2022-06-04 11:33] LABS: BASOPHILS # (AUTO) 0.1 10^3/uL (0.0-0.1); BASOPHILS % (AUTO) 0.5 %; EOSINOPHILS # (AUTO) 0.1 10^3/uL (0.0-0.7); EOSINOPHILS % (AUTO) 0.7 %; HCT - HEMATOCRIT 42.4 % (37.0-47.0); HGB - HEMOGLOBIN 13.7 g/dL (12.0-16.0); LYMPHOCYTES # (AUTO) 4.4 10^3/uL (1.5-3.5); LYMPHOCYTES % (AUTO) 38.5 %; MEAN CORPUSCULAR HEMOGLOBIN 28.9 pg (27.0-31.0); MEAN CORPUSCULAR HGB CONC 32.3 g/dL (32.0-36.0); MEAN CORPUSCULAR VOLUME 89.5 fL (81.0-99.0); MEAN PLATELET VOLUME 10.8 fL (7.9-10.8); MONOCYTES # (AUTO) 0.7 10^3/uL (0.0-1.0); MONOCYTES % (AUTO) 5.7 %; NEUTROPHILS # (AUTO) 6.1 10^3/uL (1.5-6.6); NEUTROPHILS % (AUTO) 53.6 %; PLT - PLATELET COUNT 337 10^3/uL (130-450); RED BLOOD COUNT 4.74 10^6/uL (4.20-5.40); RED CELL DISTRIBUTION WIDTH 13.7 % (12.0-15.0); WHITE BLOOD COUNT 11.5 x10^3/uL (4.8-10.8)
[2022-06-04 12:08] LABS: ALBUMIN/GLOBULIN RATIO 1.2 (1.0-2.2); BILIRUBIN,TOTAL 0.4 mg/dL (0.2-1.0); CALCIUM 8.7 mg/dL (8.5-10.3); CREATININE 0.7 mg/dL (0.4-1.0); POTASSIUM 3.7 mmol/L (3.5-5.0); TOTAL PROTEIN 7.4 g/dL (6.7-8.2)
== END 2022-06-04 09:30 | disposition home or self-care (01) ==
LOC: LAB.N 09:15
PROVIDERS: ATTEND Physician Assistant
DX: R53.1 Weakness (principal)
CPT/HCPCS: 36415; 80050

== ENCOUNTER 2022-07-21 12:29 | Outpatient (CLI) | payer MEDICAID ==
[2022-07-21 18:19] LABS: CHOL/HDL RATIO 3.6 (<4.4); CHOLESTEROL 153 mg/dL; HDL CHOLESTEROL 43 mg/dL; LDL CHOLESTEROL,CALCULATED 70 mg/dL; LDL/HDL RATIO 1.6 (<4.4); TRIGLYCERIDES 198 mg/dL; VLDL CHOLESTEROL 40 mg/dL
[2022-07-21 20:35] LABS: ESTIMATED AVERAGE GLUCOSE 105 mg/dL (70-100); HEMOGLOBIN A1c% 5.3 % (4.27-6.07)
== END 2022-07-21 12:30 | disposition home or self-care (01) ==
LOC: DI.N 12:29 → LAB.N 12:30
PROVIDERS: ATTEND Nurse Practitioner Family
DX: E28.2 Polycystic ovarian syndrome (principal); Z13.1 Encounter for screening for diabetes mellitus; Z13.220 Encounter for screening for lipoid disorders; E66.01 Morbid (severe) obesity due to excess calories
CPT/HCPCS: 36415; 80050; 80061; 83036; 83721

== ENCOUNTER 2022-07-21 13:13 | Outpatient (CLI) | payer MEDICAID ==
--- NOTE | 2022-07-21 18:57 | XRAY Report ---
PROCEDURE: Shoulder 3 View RT INDICATIONS: PARASTHESIA OF ARM TECHNIQUE: 3 views of the shoulder were acquired. COMPARISON: None. FINDINGS: Bones: No fractures or dislocations. No suspicious bony lesions. Visualized ribs appear intact. Mild AC joint hypertrophy. Soft tissues: No suspicious soft tissue calcifications. IMPRESSION: No acute bony abnormality. If pain persists with conservative management, consider repeat radiographs in 10-14 days or cross-sectional imaging. Reviewed by: Kraig Lloyd MD on 07/21/2022 6:56 PM PDT Approved by: Kraig Lloyd MD on 07/21/2022 6:56 PM PDT Station ID: [id number]
== END 2022-07-21 23:59 | disposition home or self-care (01) ==
LOC: DI.N 13:13
PROVIDERS: ATTEND Nurse Practitioner Family
DX: R20.2 Paresthesia of skin (principal)

== ENCOUNTER 2022-10-14 13:01 | Outpatient (CLI) | payer MEDICAID | END 2022-10-14 13:02 | disposition home or self-care (01) | LOC: LAB.N 13:01 | PROVIDERS: ATTEND Obstetrics & Gynecology | DX: E28.2 Polycystic ovarian syndrome (principal) | CPT/HCPCS: 36415; 84144 ==

== ENCOUNTER 2022-11-16 13:19 | Outpatient (CLI) | payer MEDICAID | END 2022-11-16 13:20 | disposition home or self-care (01) | LOC: LAB.N 13:19 | PROVIDERS: ATTEND Obstetrics & Gynecology | DX: E28.2 Polycystic ovarian syndrome (principal) | CPT/HCPCS: 36415; 84144 ==

== ENCOUNTER 2022-12-18 15:22 | Outpatient (CLI) | payer MEDICAID | END 2022-12-18 15:23 | disposition home or self-care (01) | LOC: LAB.N 15:22 | PROVIDERS: ATTEND Obstetrics & Gynecology | DX: N91.5 Oligomenorrhea, unspecified (principal) | CPT/HCPCS: 36415; 84144 ==

== ENCOUNTER 2023-01-19 10:45 | Outpatient (CLI) | payer MEDICAID | END 2023-01-19 10:46 | disposition home or self-care (01) | LOC: LAB.N 10:45 | PROVIDERS: ATTEND Obstetrics & Gynecology | DX: N91.5 Oligomenorrhea, unspecified (principal) | CPT/HCPCS: 36415; 84144 ==

== ENCOUNTER 2023-04-23 19:45 | Outpatient (CLI) | payer MEDICAID ==
--- NOTE | 2023-04-25 15:59 | Ultrasound Report ---
PROCEDURE: OB 1st Trimester w/TV INDICATIONS: POSITIVE TEST OUTSIDE/PRIOR DATING DATA: Last menstrual period (LMP): 02/18/2023. LMP-based estimated date of delivery (JOSUE): 11/25/2023. First dating scan (date and location): 04/23/2023. Estimated date of delivery (JOSUE) from first dating scan: 12/17/2023. TECHNIQUE: Real-time scanning was performed of the fetus and maternal pelvic organs, with image documentation. Endovaginal scanning was also performed to better visualize the fetus and maternal ovaries. COMPARISON: None. FINDINGS: Intrauterine gestational sac present. Embryo: Mean gestational sac diameter of 1.2 cm corresponding to 6 weeks 0 days. [place]-rump length m easuring 0.34 cm corresponding to 6 weeks 0 days. Estimated gestational age by current ultrasound is 6 weeks, 0 days. Heart rate: 112 bpm. Other: Small perigestational bleed measuring 1.0 x 0.6 x 1.2 cm Measurement variability in dating: +/- 4 weeks by LMP, +/- 7 days by mean sac diameter (use before 6 weeks gestation if crown-rump length not able to be measured), +/- 5 days by crown-rump length (6-12 weeks gestation). Maternal organs: Ovaries appear within normal limits. IMPRESSION: Single intrauterine gestation with estimated age of 6 weeks, 0 days based on crown-rump length. Small perigestational bleed measuring up to 1.2 cm. Reviewed by: Shivani Sierra MD on 04/25/2023 3:58 PM PST Approved by: Shivani Sierra MD on 04/25/2023 3:58 PM PST Station ID: [id number]
== END 2023-04-23 19:46 | disposition home or self-care (01) ==
LOC: DI 19:45
PROVIDERS: ATTEND Nurse Practitioner
DX: O46.91 Antepartum hemorrhage, unspecified, first trimester (principal); Z3A.01 Less than 8 weeks gestation of pregnancy

== ENCOUNTER 2023-05-14 08:00 | Outpatient (CLI) | payer MEDICAID ==
[2023-05-14 20:17] LABS: CHLAMYDIA TRACHOMATIS DNA NEGATIVE (NEGATIVE); NEISSERIA GONORRHOEAE DNA NEGATIVE (NEGATIVE); TRICHOMONAS VAGINALIS DNA NEGATIVE (NEGATIVE)
== END 2023-05-14 23:59 | disposition home or self-care (01) ==
LOC: LAB.WC 08:00
PROVIDERS: ATTEND Nurse Practitioner
DX: Z11.3 Encounter for screening for infections with a predominantly sexual mode of transmission (principal)
CPT/HCPCS: 87491; 87591; 87661

== ENCOUNTER 2023-05-14 16:21 | Outpatient (CLI) | payer MEDICAID ==
[2023-05-14 16:46] LABS: BILIRUBIN,URINE NEGATIVE (NEGATIVE); GLUCOSE, URINE (UA) NEGATIVE (NEGATIVE); KETONES,URINE (UA) TRACE mg/dL (NEGATIVE); LEUKOCYTE ESTERASE, URINE TRACE (NEGATIVE); NITRITE,URINE NEGATIVE (NEGATIVE); OCCULT BLOOD,URINE MODERATE (NEGATIVE); PROTEIN,URINE NEGATIVE (NEGATIVE); UROBILINOGEN,URINE 0.2 (NORMAL) E.U./dL (NORMAL)
[2023-05-14 16:48] LABS: BASOPHILS % (AUTO) 0.3 %; EOSINOPHILS % (AUTO) 0.1 %; HCT - HEMATOCRIT 40.2 % (37.0-47.0); HGB - HEMOGLOBIN 13.1 g/dL (12.0-16.0); LYMPHOCYTES # (AUTO) 2.1 10^3/uL (1.5-3.5); MEAN CORPUSCULAR HEMOGLOBIN 29.6 pg (27.0-31.0); MEAN CORPUSCULAR HGB CONC 32.6 g/dL (32.0-36.0); MEAN CORPUSCULAR VOLUME 90.7 fL (81.0-99.0); MEAN PLATELET VOLUME 10.8 fL (7.9-10.8); MONOCYTES # (AUTO) 0.5 10^3/uL (0.0-1.0); MONOCYTES % (AUTO) 3.8 %; NEUTROPHILS # (AUTO) 11.2 10^3/uL (1.5-6.6); NEUTROPHILS % (AUTO) 80.6 %; PLT - PLATELET COUNT 324 10^3/uL (130-450); RED BLOOD COUNT 4.43 10^6/uL (4.20-5.40); RED CELL DISTRIBUTION WIDTH 13.2 % (12.0-15.0); WHITE BLOOD COUNT 13.8 x10^3/uL (4.8-10.8)
[2023-05-14 16:59] LABS: CLARITY,URINE HAZY (CLEAR)
[2023-05-14 17:04] LABS: ALBUMIN 4.4 g/dL (3.2-5.5); ALBUMIN/GLOBULIN RATIO 1.5 (1.0-2.2); BILIRUBIN,TOTAL 0.2 mg/dL (0.2-1.0); CALCIUM 9.6 mg/dL (8.5-10.3); CREATININE 0.5 mg/dL (0.6-1.3); CREATININE,URINE 201.2 mg/dL; POTASSIUM 3.4 mmol/L (3.5-4.5); PROTEIN/CREATININE RATIO,URINE 0.1 (<=0.2); TOTAL PROTEIN 7.4 g/dL (6.4-8.9)
[2023-05-14 17:07] LABS: BACTERIA,URINE Few /HPF (None Seen); MUCUS,URINE Moderate Strands; SQUAMOUS EPITHELIAL CELL,UR MANY Squamous (<= Few)
[2023-05-14 17:17] LABS: THYROID STIMULATING HORMONE 0.36 uIU/mL (0.34-5.60)
[2023-05-14 20:55] LABS: ESTIMATED AVERAGE GLUCOSE 94 mg/dL (70-100); HEMOGLOBIN A1c% 4.9 % (4.27-6.07)
[2023-05-15 08:10] LABS: HIV SCREEN 4TH GENERATION Non Reactive (Non Reactive)
[2023-05-15 10:09] LABS: HCV AB Non Reactive (Non Reactive)
[2023-05-15 16:08] LABS: VARICELLA-ZOSTER AB IGG 614 index (Immune >165)
[2023-05-16 04:07] LABS: HBsAG SCREEN Negative (Negative)
[2023-05-16 05:08] LABS: RPR Non Reactive (Non Reactive)
== END 2023-05-14 16:22 | disposition home or self-care (01) ==
LOC: LAB 16:21
PROVIDERS: ATTEND Nurse Practitioner
DX: O09.891 Supervision of other high risk pregnancies, first trimester (principal)
CPT/HCPCS: 36415; 80050; 81001; 82570; 83036; 84156; 86592; 86762; 86787; 86803; 86850; 86900; 86901; 87086; 87340; 87389

== ENCOUNTER 2023-09-08 10:00 | Outpatient (CLI) | payer MEDICAID ==
[2023-09-08 11:24] LABS: HCT - HEMATOCRIT 35.6 % (37.0-47.0); HGB - HEMOGLOBIN 11.6 g/dL (12.0-16.0); MEAN CORPUSCULAR HEMOGLOBIN 30.3 pg (27.0-31.0); MEAN CORPUSCULAR HGB CONC 32.6 g/dL (32.0-36.0); MEAN PLATELET VOLUME 10.6 fL (7.9-10.8); RED BLOOD COUNT 3.83 10^6/uL (4.20-5.40); RED CELL DISTRIBUTION WIDTH 13.6 % (12.0-15.0); WHITE BLOOD COUNT 11.8 x10^3/uL (4.8-10.8)
[2023-09-09 13:11] LABS: RPR Non Reactive (Non Reactive)
== END 2023-09-08 10:01 | disposition home or self-care (01) ==
LOC: LAB 10:00
PROVIDERS: ATTEND Obstetrics & Gynecology
DX: O09.891 Supervision of other high risk pregnancies, first trimester (principal)
CPT/HCPCS: 36415; 82950; 85027; 86592

== ENCOUNTER 2023-09-22 16:56 | Outpatient (CLI) | payer MEDICAID ==
--- NOTE | 2023-09-22 18:07 | Ultrasound Report ---
PROCEDURE: Duplex Ext Veins Bilateral INDICATIONS: Bentley Keith PA-C TECHNIQUE: Real-time imaging, as well as color and pulse Doppler interrogation, were performed of the deep veins of both legs from the inguinal ligament to the popliteal fossa. Attempted visualization of the calf veins was performed. COMPARISON: None FINDINGS: The deep veins are normally compressible, and free of intraluminal thrombus. Color and pu lse Doppler demonstrate normal phasic intravascular flow. There is normal augmentation response to d istal compression maneuver. IMPRESSION: No deep venous thrombosis of the visualized lower extremities. Reviewed by: Yahir Santamaria MD on 09/22/2023 6:06 PM PDT Approved by: Yahir Santamaria MD on 09/22/2023 6:06 PM PDT Station ID: [id number]
== END 2023-09-22 16:57 | disposition home or self-care (01) ==
LOC: DI 16:56
PROVIDERS: ATTEND Physician Assistant
DX: R06.02 Shortness of breath (principal)
CPT/HCPCS: 93970

== ENCOUNTER 2023-12-17 08:35 | Inpatient (IN) ==
[2023-12-17 09:31] LABS: RUPTURE OF MEMBRANES PLUS NEGATIVE (NEGATIVE)
[2023-12-17] MEDS ORDERED: fentaNYL 100 MCG/2 ML VIAL IVP PRN (10:58)
[2023-12-17] MEDS ORDERED: SODIUM CHLORIDE FLUSH 0.9% 10 ML SYRINGE IVP PRN (10:58)
[2023-12-17] MEDS ORDERED: hydrALAZINE INJ 20 MG/ML VIAL IVP PRN (10:58)
[2023-12-17] MEDS ORDERED: TRANEXAMIC ACID IN NACL 1,000 MG/100 ML BAG IV PRN (10:58)
[2023-12-17] MEDS ORDERED: lidocaine 1% 20 ML MDV ID PRN (10:58)
[2023-12-17] MEDS ORDERED: miSOPROStoL 200 MCG TABLET BC PRN (10:58)
[2023-12-17] MEDS ORDERED: LABETALOL 20 MG/4 ML SYRINGE IVP PRN ×3 (10:58)
[2023-12-17] MEDS ORDERED: METHYLERGONOVINE 0.2 MG/ML VIAL IM PRN (10:58)
[2023-12-17] MEDS ORDERED: OXYTOCIN 10 UNIT/ML VIAL IM PRN (10:58)
[2023-12-17] MEDS ORDERED: NIFEdipine 10 MG CAPSULE PO PRN (10:58)
[2023-12-17] MEDS ORDERED: TERBUTALINE 1 MG/ML VIAL SUBQ PRN (10:58)
[2023-12-17] MEDS ORDERED: miSOPROStoL 200 MCG TABLET PR PRN (10:58)
[2023-12-17] MEDS ORDERED: CARBOPROST TROMETHAMINE 250 MCG/ML VIAL IM PRN (10:58)
[2023-12-17] MEDS ORDERED: SODIUM CHLORIDE FLUSH 0.9% 10 ML SYRINGE IVP SCH (11:00)
[2023-12-17 11:07] LABS: BASOPHILS % (AUTO) 0.2 %; EOSINOPHILS % (AUTO) 0.1 %; HCT - HEMATOCRIT 39.6 % (37.0-47.0); HGB - HEMOGLOBIN 12.8 g/dL (12.0-16.0); LYMPHOCYTES % (AUTO) 14.7 %; MEAN CORPUSCULAR HEMOGLOBIN 29.8 pg (27.0-31.0); MEAN CORPUSCULAR HGB CONC 32.3 g/dL (32.0-36.0); MEAN CORPUSCULAR VOLUME 92.3 fL (81.0-99.0); MONOCYTES # (AUTO) 0.7 10^3/uL (0.0-1.0); NEUTROPHILS # (AUTO) 10.7 10^3/uL (1.5-6.6); NEUTROPHILS % (AUTO) 79.4 %; PLT - PLATELET COUNT 348 10^3/uL (130-450); RED BLOOD COUNT 4.29 10^6/uL (4.20-5.40); RED CELL DISTRIBUTION WIDTH 13.6 % (12.0-15.0); WHITE BLOOD COUNT 13.5 x10^3/uL (4.8-10.8)
[2023-12-17 11:48] LABS: ALBUMIN 3.6 g/dL (3.2-5.5); ALBUMIN/GLOBULIN RATIO 1.2 (1.0-2.2); BILIRUBIN,TOTAL 0.3 mg/dL (0.2-1.0); CALCIUM 9.3 mg/dL (8.5-10.3); CREATININE 0.4 mg/dL (0.6-1.3); TOTAL PROTEIN 6.7 g/dL (6.4-8.9)
[2023-12-17] MEDS ORDERED: ROPIVACAINE 0.2% 200 MG/100 ML BAG EP ONE (12:51)
[2023-12-17] MEDS ORDERED: LIDOCAINE 2%-EPI 1:100000 20 ML MDV ONE (12:51)
[2023-12-17] MEDS: LACTATED RINGERS 500 ML IV ONE (12:55)
[2023-12-17] MEDS ORDERED: ALBUTEROL NEB 2.5 MG/3 ML INH PRN (13:09)
[2023-12-17] MEDS ORDERED: METOCLOPRAMIDE 10 MG/2 ML VIAL IVP PRN (13:39)
[2023-12-17] MEDS ORDERED: NALBUPHINE 10 MG/ML AMP IVP PRN (13:39)
[2023-12-17] MEDS ORDERED: ePHEDrine 50 MG/ML VIAL IVP PRN (13:39)
[2023-12-17] MEDS ORDERED: diphenhydrAMINE INJ 50 MG/ML VIAL IVP PRN (13:39)
[2023-12-17] MEDS ORDERED: NALOXONE 0.4 MG/ML VIAL IVP PRN ×2 (13:39→21:09)
[2023-12-17] MEDS ORDERED: ROPIVACAINE 0.2% 200 MG/100 ML BAG EP PRN (13:39)
[2023-12-17] MEDS: OXYTOCIN/SODIUM CHLORIDE 500 ML IV SCH (15:16)
--- NOTE | 2023-12-17 17:33 | PHARMACY PROGRESS NOTE ---
Best Possible Medication History Admit Date and Time: 12/17/23 [id number] [facility] Statement: As the person ultimately responsible for medication therapy, providers are able to order a medication from an existing home medication list in [facility] via the "Reconcile Routine" prior to Confirmation of that medication by wind farm support specialist. Such practice is discouraged except when the physician, in their clinical judgment, deems that a medical need exists for a medication without regard to previous use.
[2023-12-17] MEDS: LACTATED RINGERS 1,000 ML IV PRN (17:45)
--- NOTE | 2023-12-17 18:55 | ANESTHESIA PROCEDURE NOTE ---
Pre-Anesthesia VS, & Labs Diagnosis Surgical Diagnosis:: labor Procedure Procedure: epidural Vitals Vital Signs: Temp Pulse Resp BP 36.7 C 89 18 127/72 12/17/23 11:38 12/17/23 11:38 12/17/23 11:38 12/17/23 11:38 NPO NPO: Other (clears until delivery) Is Patient ?: Yes Lab Results Current Lab Results: Laboratory Tests 12/17/23 11:27: Sodium 135, Potassium 4.0, Chloride 104, Carbon Dioxide 22, Anion Gap 9.0, BUN 6, Creatinine 0.4 L, Estimated GFR (MDRD) 193, Glucose 87, Calcium 9.3, Total Bilirubin 0.3, AST 10, ALT 8 L, Alkaline Phosphatase 163 H, Total Protein 6.7, Albumin 3.6, Globulin 3.1, Albumin/Globulin Ratio 1.2, Blood Type O POSITIVE, Antibody Screen NEGATIVE 12/17/23 10:29: WBC 13.5 H, RBC 4.29, Hgb 12.8, Hct 39.6, MCV 92.3, MCH 29.8, MCHC 32.3, RDW 13.6, Plt Count 348, MPV 12.0 H, Neut # (Auto) 10.7 H, Lymph # (Auto) 2.0, [place] # (Auto) 0.7, Eos # (Auto) 0.0, Baso # (Auto) 0.0, Absolute Nucleated RBC 0.00, Nucleated RBC % 0.0 Lab results reviewed: Yes 12/17/23 10:29 12/17/23 11:27 Meds/Allgy Home Medications Ambulatory Orders Medication Instructions Recorded Confirmed albuterol sulfate 90 mcg/actuation 2 inh inhalation PRN PRN shortness 12/13/23 12/17/23 aerosol inhaler (Ventolin HFA) of breath or wheezing vits no.126-ferrous fum 1 tab PO DAILY 12/13/23 12/17/23 28 mg iron-folic acid 800 mcg tablet (Classic ) Allergies Allergies Allergy/AdvReac Type Severity Reaction Status Date / Time No Known Drug Allergies Allergy Verified 11/19/22 20:30 [facility] Medical History Medical History (Updated 12/13/23 @ 12:58 by Cheyanne Pino MA) Weakness (06/04/22) Vaginitis (07/21/22) Urinary incontinence (09/17/21) Tinea pedis (01/19/23) Polycystic ovary syndrome (03/28/21) Paresthesia of arm (07/21/22) Oligomenorrhea (12/14/22) Morbid obesity (07/21/22) Menorrhagia (06/16/21) History of labor (05/14/23) Amenorrhea (09/17/21) Surgical History Surgical History (Updated 12/16/23 @ 11:35 by Jessica Herrera MA) History of placement of ear tubes History of appendectomy History of nasal surgery Family History Family History (Updated 12/16/23 @ 11:34 by Jessica Herrera MA) Maternal grandfather No problems noted. Maternal grandmother Heart disease Mother High blood pressure Aunt Lung cancer Social History Social History Smoking Status: Never smoker Do you dip or chew tobacco?: No Do you vape?: No Do you feel safe in your home environment?: Yes Suffered physical, verbal, emotional, or financial abuse?: No History of Abuse: No Are you sexually active?: Yes POLST Patient has POLST: No Anesthesia Exam (Expanded) Exam General: Alert Dental: WNL Mouth Opening: Greater than 4 Fingerbreadths Neck Mobility: Normal Mallampati classification: II Thyromental Distance: greater than 6 cm Respiratory: Lungs clear Cardiovascular: Regular rate Exam Exam Vital Signs Temperature 36.7 C 12/17/23 11:38 Pulse Rate 89 12/17/23 11:38 Respiratory Rate 18 12/17/23 11:38 Blood Pressure 127/72 12/17/23 11:38 Plan Plan Anesthesia Type: Epidural Consent for Procedure(s) Verified and Reviewed: Yes Code Status: Attempt Resuscitation ASA Classification ASA classification: 2-Mild systemic disease Is this case an emergency?: No
[2023-12-17] MEDS: ONDANSETRON 4 MG/2 ML VIAL IVP PRN (19:19)
--- NOTE | 2023-12-17 19:34 | HISTORY & PHYSICAL EXAMINATION ---
Admit History Visit Reason Visit Reason: Contractions : 2 Parity: 1 Premature: 1 Care: positive [facility] Risk/History: positive labor <37 weeks (with first baby. delivered 33 weeks. had cerclage with cervical incompetence. Cerclage placed this as well and removed at 37 weeks at . ), Premature rupture membrane and Other (obesity, bmi at first visit 39. asthma, insulin resistance, pcos. no gdm. ) Smoking Status: Never smoker Mother's Labs Mother's Blood Type: positive O Mother's RH: positive Positive GBS: positive Group B Step Negative Rubella Status: positive Immune Other Maternal History Other Maternal History: went very well. cerclage placed by [facility] and removed 11/25 by . declined flu and covid vaccines but got RSV and TDAP vaccines. HPI Current : Current EDU 12/17/23 Gestation 40 Weeks and 0 Days Para 1 Vital Signs Temperature 36.9 C 12/17/23 08:51 Pulse Rate 102 H 12/17/23 08:51 Respiratory Rate 18 12/17/23 08:51 Blood Pressure 115/85 12/17/23 08:51 Temperature 36.7 C 12/17/23 11:38 Pulse Rate 89 12/17/23 11:38 Respiratory Rate 18 12/17/23 11:38 Blood Pressure 127/72 12/17/23 11:38 NST Procedure NST Procedure: NST Procedure Start Date 12/17/23 Start Time 09:10 Stop Time 09:35 Vibroacoustic Stimulation Used No Patient States Movement Yes Meds/Allgy Home Medications Ambulatory Orders Medication Instructions Recorded Confirmed albuterol sulfate 90 mcg/actuation 2 inh inhalation PRN PRN shortness 12/13/23 12/17/23 aerosol inhaler (Ventolin HFA) of breath or wheezing vits no.126-ferrous fum 1 tab PO DAILY 12/13/23 12/17/23 28 mg iron-folic acid 800 mcg tablet (Classic ) Allergies Allergies Allergy/AdvReac Type Severity Reaction Status Date / Time No Known Drug Allergies Allergy Verified 11/19/22 20:30 [facility] Medical History Medical History (Updated 12/17/23 @ 19:29 by Priscila Shields MD) Verruca vulgaris (07/13/23) Pruritic intertrigo (01/19/23) Weakness (06/04/22) Vaginitis (07/21/22) Urinary incontinence (09/17/21) Tinea pedis (01/19/23) Polycystic ovary syndrome (03/28/21) Paresthesia of arm (07/21/22) Oligomenorrhea (12/14/22) Menorrhagia (06/16/21) History of labor (05/14/23) Amenorrhea (09/17/21) Surgical History Surgical History (Updated 12/17/23 @ 19:30 by Priscila Shields MD) History of placement of ear tubes History of appendectomy History of nasal surgery Family History Family History (Updated 12/16/23 @ 11:34 by Jessica Herrera MA) Maternal grandfather No problems noted. Maternal grandmother Heart disease Mother High blood pressure Aunt Lung cancer Social History Social History Smoking Status: Never smoker Do you dip or chew tobacco?: No Do you vape?: No Do you feel safe in your home environment?: Yes Suffered physical, verbal, emotional, or financial abuse?: No History of Abuse: No Are you sexually active?: Yes POLST Patient has POLST: No POLST Status: Full Code Review of Systems no zuniga, n/v. some swelling. ? SROM in shower, no bleeding. good movment. Physical Abdominal Exam Vital Signs: Temp Pulse Resp BP 36.7 C 89 18 127/72 12/17/23 11:38 12/17/23 11:38 12/17/23 11:38 12/17/23 11:38 Contraction Frequency (min/apart): q4 min Contraction Intensity: positive Moderate Uterine Resting Tone: positive Soft Monitoring Strip Review: positive Category I Presentation Presentation: positive Vertex Vaginal Exam Membranes: positive Membranes intact Dilation (in cm): 5 Effacement (%): 80 Station: positive Ballotable Cervical Position: positive Midposition Speculum Exam Speculum Exam Performed: positive No Plan for Labor Plan For Labor I expect patient to be DC'd or transferred within 96 hours.: Yes Conclusion/Plan Problem List (1) Morbid obesity: (2) Normal labor: Plan: admit for labor. plans for epidural. anticipate . gbs neg. (3) 40 weeks gestation of : (4) History of cervical cerclage: (5) Maternal care for cervical incompetence, first trimester: Lab Results Lab results reviewed: Yes 12/17/23 10:29 12/17/23 11:27
--- NOTE | 2023-12-17 19:55 | PROVIDER PROGRESS NOTE ---
Labor Progress Note Labor Progress Note Labor Progress Note/Additional Text: comfortable wtih epidural. AROM at 17:15 and then many decels as I sat her up and she got pale and did not feel good. episodes of hypotension with epidural placement earlier subsequent decels. with AROM pitocin stopped, many position changes. tracing category 2 much of time. Then about 6:45, category 1 and looks great since then. contractions in a nice pattern every 2 min without pitocin. RN just checked her and anterior lip. anticipate vag del soon.
[2023-12-17] MEDS: OXYTOCIN/SODIUM CHLORIDE 500 ML IV PRN (21:00)
[2023-12-17] MEDS ORDERED: SIMETHICONE CHEW 80 MG TABLET PO PRN (21:09)
[2023-12-17] MEDS ORDERED: OXYTOCIN/SODIUM CHLORIDE 500 ML IV PRN (21:09)
[2023-12-17] MEDS: ACETAMINOPHEN 500 MG TABLET PO PRN (22:55)
--- NOTE | 2023-12-17 22:58 | DELIVERY NOTE ---
Delivery Note Labor Labor: positive Spontaneous Infant Delivery Method Infant Delivery Method: positive Spontaneous vaginal delivery Presentation Presentation: positive Vertex and OA - occiput anterior Nuchal Cord Nuchal Cord: positive None Amniotic Fluid Description Amniotic Fluid Description: positive Clear Episiotomy Type Episiotomy Type: positive None Laceration Laceration: positive Vaginal (small right vaginal laceration repaired with 2-0 Vicryl with 1 figure of 8 and one single stitch. just at hymenal ring. ) Delivery Outcome Delivery Outcome: positive Livebirth [place] : positive Placed in direct skin contact with mother and Stimulated [place] sex: positive Male Cord Cord: positive 3 vessels Placenta Placenta: positive Intact and Spontaneous Estimated Blood Loss Estimated Blood Loss (in cc): 300 Delivery Comments (Free Text/Narrative) Delivery Comments (Free Text/Narrative): Patient presented in active labor 5 cm. having back labor. received her epidural around 1300. AFter that had some decels with hypotension. Pitocin on and off and on again. At 1700 AROM was done to augment her labor. clear fluid. 7 cm at that time. I sat her up after that and she got pale, vomited and felt horrible. we did not get an accurate bp but decels occurred again. pitocin off, multiple postion changes and baby found a new happy place and tracing was perfect for the last 1.5 hours of her labor. Got to complete, pushed for about 20 min and baby's head delivered and turtled back into the vagina. Patient's head of bed was lowered, legs pulled back farther. suprapubic pressure done. I tried to guide the baby out with her pushing. was able to dislodge the anterior shoulder and baby delivered and put on mom's chest. This took less than a minute. He took less than a minute to cry and remained vigorous on her chest. I waited about 2 min to clamp the cord. Clotilde's mom did th honor of cutting the cord. Pitocin was begun. Placenta delivered spontaneously. It appeared intact and normal. Dr. Granados, who cares for Clotilde's first son, was here and came in just after delivery. She will fully evaluate him tomorrow as he was doing very well tonight. There was a small vaginal laceration to right of center repaired as above.
[2023-12-18] MEDS: TRIAMCINOLONE 0.1% CREAM 15 GM TUBE TOP SCH (02:25)
[2023-12-18] MEDS: IBUPROFEN 600 MG TABLET PO PRN (03:39)
[2023-12-18] MEDS: DOCUSATE SODIUM 100 MG CAPSULE PO SCH (09:24)
[2023-12-18 12:12] VITALS: O2SAT 99
--- NOTE | 2023-12-18 18:24 | Discharge Summary ---
"Discharge Summary Admit Date: 12/17/23 Discharge Date: 12/18/23 Discharging Provider: Priscila Shields MD Code Status: Attempt Resuscitation DIAGNOSES Admission Diagnoses: term in labor Discharge Diagnoses with Status of Each Condition: term delivered with shoulder dystocia, resolved with standard maneuvers. HPI History of Present Illness: 28 yo presents in active labor 40 weeks 0 d in active labor. c/b cerclage removed at 37 weeks. Cerclage with first and delivered at 33 weeks after PROM. CONSULTS | PROCEDURES Procedures: vaginal delivery with epidural anesthesia. HOSPITAL COURSE Hospital Course: Patient was admitted in active labor about 5 cm dilated at about 10 am. She received her epidural around noon. 1700 AROM was done and fluid was clear. With epidural and after AROM, bp dropped, patient felt ill and baby had many decels. After about 1 hour of lots of flipping of patient, tracing returned to category 1 for the rest of labor. She pushed for about 20 min to deliver her baby in OA position. Shoulder dystocia relieved with standard maneuvers. Small vaginal laceration with 2 stitches placed. Post course uncomplicated. She is pumping and bottle feeding baby her breast milk. She is ready for discharge at 24 hrs. Baby is a boy named Sindy weighing 4257 g. Apgars were 8/9. ALLERGIES Allergies Allergy/AdvReac Type Severity Reaction Status Date / Time No Known Drug Allergies Allergy Verified 11/19/22 20:30 MEDICATIONS Ambulatory Orders Medication Instructions Recorded Confirmed albuterol sulfate 90 mcg/actuation 2 inh inhalation PRN PRN shortness 12/13/23 12/17/23 aerosol inhaler (Ventolin HFA) of breath or wheezing vits no.126-ferrous fum 1 tab PO DAILY 12/13/23 12/17/23 28 mg iron-folic acid 800 mcg tablet (Classic ) Home Medications Other | Comments: She has tylenol. motrin and stool softeners to use as needed. PHYSICAL EXAM AT DISCHARGE General Appearance: positive No acute distress Respiratory: positive No respiratory distress Abdomen: positive Non-tender Extremities: positive Non-tender LABS 12/17/23 10:29 12/17/23 11:27 FOLLOW UP Follow Up: in clinic in 1-2 weeks. TIME SPENT Time Spent in Discharge (Minutes): 25 Discharge Plan Discharge Patient Disposition: 01 Home, Self Care Condition: Good Prescriptions: Continued albuterol sulfate [Ventolin HFA] 90 mcg/actuation HFA aerosol inhaler 2 inh inhalation PRN PRN (Reason: shortness of breath or wheezing) Patient Comments: uses at night, only occasionally, has not used recently. Classic 28 mg iron- 800 mcg tablet 1 tab PO DAILY Activity Restrictions: pelvic rest x 6 weeks Diet: Regular Print Language: [place] Patient Instructions: Breastmilk Storage, Nutrition , Vaginal, Self Care Follow-up Care: Priscila Shields MD [Provider Admit Priv/Credential] -"
[2023-12-18] MEDS ORDERED: guaiFENesin 100 MG/5 ML UDC PO PRN (20:19)
[2023-12-18] MEDS ORDERED: diphenhydrAMINE 25 MG CAPSULE PO PRN (20:19)
[2023-12-18] MEDS ORDERED: BENZOCAINE/MENTHOL LOZENGE MM PRN (20:19)
--- NOTE | 2023-12-18 20:23 | PROVIDER PROGRESS NOTE ---
Progress Note Progress Note Progress Note: patient has decided that she does not want to go home. She feels like she is getting a cold and would like some medication for that. Will also do resp virus swab. has been afebrile.
--- NOTE | 2023-12-18 22:11 | Labor Flowsheet ---
Labor Flowsheet Datetime Report Generated by CPN: 12/18/2023 22:11 Datetime: 12/18/2023 19:47 VITAL SIGNS NBP Sys/Erika/Mean (mmHg): 143 : 78 : 92 Pulse: 85 Datetime: 12/17/2023 23:00 Stage of : Datetime: 12/17/2023 20:46 LaborFlag: Labor Datetime: 12/17/2023 20:30 UTERINE ACTIVITY Monitor Mode: External Frequency (min): 1-3 Quality: Strong Duration (sec): 50-80 Pattern: Normal: <= 5 Contractions in 10 Minutes Resting Tone (Palpate): Relaxed ASSESSMENT A Monitor Mode: External US FHR Baseline Rate : 125 Variability: Moderate 6-25 bpm Accelerations: 15X15 Decelerations: Late Actions for Decelerations: Side to Side Category: Category II Datetime: 12/17/2023 20:20 VAGINAL EXAM Dilatation (cm): 10.0 Exam by: Shields STAGE 2 Pushing: Coached on Pushing Datetime: 12/17/2023 20:15 I/O Interventions: [place] Discontinued Datetime: 12/17/2023 20:07 Effacement (%): 90 Station: 1 Datetime: 12/17/2023 20:00 Temperature (C): 36.7 Datetime: 12/17/2023 19:47 Provider Notified (Name): Shields Communication Comments: notified of SVE Datetime: 12/17/2023 19:45 Patient Position/Activity: Right Tilt Datetime: 12/17/2023 19:20 SpO2 (%): 97 Datetime: 12/17/2023 19:15 Respirations: 12 Datetime: 12/17/2023 19:01 Oxygen Method: Room Air Datetime: 12/17/2023 19:00 Provider Reviewed Strip: Yes Datetime: 12/17/2023 18:45 FHR Baseline Changes: No Baseline Change Datetime: 12/17/2023 18:28 Patient Care Comments: pt sitting up higher with peanut ball. tolerating well Datetime: 12/17/2023 18:09 COMMUNICATION Communication: Report Given to @ Dr Shields Notification Reason: Status Update Datetime: 12/17/2023 18:00 Monitor Interventions for UA: [place] Adjusted Datetime: 12/17/2023 17:59 Pain Assessment Comments: patient feeling more pressure. Datetime: 12/17/2023 17:30 Comments: FHR 135-140s. interupted strip due to decelerations and frequent position changes Datetime: 12/17/2023 17:23 MEDICATIONS Pitocin (milliunits): Discontinued Datetime: 12/17/2023 17:12 Membrane Status: Ruptured Membranes Rupture Method: Artificial Amniotic Fluid Color: Clear Datetime: 12/17/2023 17:00 Monitor Interventions for FHR: Ultrasound Adjusted Datetime: 12/17/2023 16:15 PAIN Pain Coping: Talking Through Contractions Datetime: 12/17/2023 16:00 Anesthesia Level Check: T10- Umbilicus Datetime: 12/17/2023 14:30 Contraction Comments: unable to determine Datetime: 12/17/2023 13:55 PATIENT CARE IV/Blood Work: IV Bolus Started Datetime: 12/17/2023 13:07 Epidural Procedure Other: Pump Started Datetime: 12/17/2023 13:06 Temperature Route: Oral Datetime: 12/17/2023 13:05 Epidural Procedure: Test Dose Datetime: 12/17/2023 12:55 PROCEDURE TIME OUT Procedure Verify: Correct Patient Identity; Correct Side and Site are Marked; Accurate Procedure Co nsent Form; Agreement on Procedure to be Done; Correct Patient Position; Addressed Need to Administer Antibiotics or Fluids for Irrigation; Safety Precautions Based on Patient History or Medication Use ANESTHESIA Anesthesia Plans: Epidural Epidural Positioning: Sitting Anesthesia Comments: Aube at bedside.
== END 2023-12-18 22:05 | disposition home or self-care (01) | DRG 805 ==
LOC: WFO 08:35 → FBP 08:35
PROVIDERS: ADMIT Obstetrics & Gynecology; ATTEND Obstetrics & Gynecology
DX: I95.9 Hypotension, unspecified; Z3A.40 40 weeks gestation of pregnancy; Z37.0 Single live birth; O34.31 Maternal care for cervical incompetence, first trimester; O99.214 Obesity complicating childbirth; O99.42 Diseases of the circulatory system complicating childbirth; O76 Abnormality in fetal heart rate and rhythm complicating labor and delivery; O71.4 Obstetric high vaginal laceration alone; E66.01 Morbid (severe) obesity due to excess calories; O66.0 Obstructed labor due to shoulder dystocia